=== PATIENT | male | born 1990 | race Two or more races ===

== ENCOUNTER 2019-01-06 21:07 | Emergency (ER) | payer SELFPAY ==
[~2019-01-06] VITALS: Ht 167.6 cm; Wt 77.1 kg
[2019-01-06] MEDS ORDERED: SODIUM CHLORIDE 0.9% 1,000 ML IV ONE (21:25)
[2019-01-06 21:36] VITALS: BP 146/76
== END 2019-01-07 01:11 | disposition home or self-care (01) ==
LOC: EDBD 21:07 → ER 21:12
DX: S09.90XA Unspecified injury of head, initial encounter (principal); S80.02XA Contusion of left knee, initial encounter; F12.10 Cannabis abuse, uncomplicated; W19.XXXA Unspecified fall, initial encounter; Y93.89 Activity, other specified; Y99.8 Other external cause status; Y92.89 Other specified places as the place of occurrence of the external cause
CPT/HCPCS: 70450; 73560; 94761